=== PATIENT | male | born 1980 | race Caucasian/White ===

== ENCOUNTER 2025-02-09 14:40 | Outpatient (OUT) | payer BC, SELFPAY ==
--- OUTSIDE RECORDS SUMMARY | 2025-02-09 14:47 | XMS_ITS | Encounter Summary ---
Author Organization [facility] Address [id number] [place] [address] Care Team Providers Care Metalsmith Name Role Phone Patsy Anderson PRIMARY EDUCATION PROFESSOR-CDL SERVICE TECHNICIAN Primary Care Provider Reason for Visit * Reason Comments Med Refill Encounter Details Date Type Department Care Team (Late st Contact Info) Description 11/22/2023 Refill [facility] [address] [place] [address] Hali Avila, PA-C [address] [place] [address] Gastroesophageal reflux disease, unspecified whether esophagitis present Social History Tobacco Use Types Packs/Day Years Used Date Smoking Tobacco: Never Smokeless Tobacco: Current Chew Comments:QUIT 8 YEARS Alcohol Use Standard Drinks/Week Comments Not Currently 0 (1 standard drink = 0.6 oz pur e alcohol) Childcare Answer Date Recorded Childcare Unknown 10/09/2018 Employment Answer Date Recorded Employment Unknown 10/09/2018 Hunger Screening Answer Date Recorded Within the past 12 months we worried whether our food would run out before we got money to buy more. Never True 07/10/2023 Within the past 12 months th e food we bought just didn't last and we didn't have money to get more. Never True 07/10/2023 Purpose - Life Answer Date Recorded Purpose and direction in life Unknown Sex and Gender Information Value Date Recorded Sex Assigned at Male 01/10/2022 9:00 AM EDT Legal Sex Male 12:01 PM EDT Gender Identity Male 01/10/2022 9:00 AM EDT Sexual Orientation Straight 01/10/2022 9 :00 AM EDT documented as of this encounter Miscellaneous Notes * Telephone Encounter - Hali Avila PA-C - 11/22/2023 5:18 PM EDT Patient was discharged from our practice effective 09/06/2023. He will need to obtain any further refills from his PCP. * Telephone Encounter - Nina Castellon CMA - 11/22/2023 5:18 PM EDT Noted documented in this encounter Plan of Treatment Not on file documented as of this encounter Visit Diagnoses Diagnosis Gastroesophageal reflux disease, unspecified whether esophagitis present documented in this encounter Care Teams Metalsmith Relationship Specialty Start Date End Date Patsy Anderson, PRIMARY EDUCATION PROFESSOR-CDL SERVICE TECHNICIAN PCP - General Nurse Practitioner 02/07/22 documented as of this encounter
--- OUTSIDE RECORDS SUMMARY | 2025-02-09 14:47 | XMS_ITS | Encounter Summary ---
Author Organization [facility] Address [address] [place] [address] Care Team Providers Care Telecommunications Specialist Name Role Phone Patsy Anderson NP Unavailable [phone] Lon Baker MD Primary Care Provider [phone] Encounter Details Date Type Department Care Team (Late st Contact Info) Description 08/04/2024 Abstract [facility] [address] [place] [address] Patsy Anderson NP [address] [place] [address] Social History Tobacco Use Types Packs/Day Years Used Date Smoking Tobacco: Former Cigarettes Q uit: 2016 Smokeless Tobacco: Never Alcohol Use Standard Drinks/Week Comments Never 0 (1 standard drink = 0.6 oz pur e alcohol) caffine: soda 1 daily B1300 Health Literacy Answer Date Recor ded How often do you need to hav e someone help you when you read instructions, pamphlets, or other written material from your doctor or pharmacy? Never 04/27/2024 Social Connection and Isolation Panel Answer Date Recorded In a typical week, how many times do you talk on the phone with family, friends, or neighbors? More than three times a week 04/27/2024 How often do you get togethe r with friends or relatives? More than three times a week 04/27/2024 How often do you attend chur ch or baptist services? More than 4 times per year 04/27/2024 Do you belong to any clubs o r organizations such as bahai groups, unions, fraternal or athletic groups, or school groups? Yes 04/27/2024 How often do you attend meet ings of the clubs or organizations you belong to? More than 4 times per year 04/27/2024 Are you , , di vorced, , never , or living with a partner? Patient declined 04/27/2024 AUDIT-C Answer Date Recorded Q1: How often do you have a drink containing alcohol? Never 04/27/2024 Q2: How many drinks containi ng alcohol do you have on a typical day when you are drinking? Patient does not drink Q3: How often do you have si x or more drinks on one occasion? Never 04/27/2024 Overall Financial Resource Strain (CARDIA) Answe r Date Recorded How hard is it for you to pa y for the very basics like food, housing, medical care, and heating? Not hard at all 04/27/2024 PHQ-2 Answer Date Recorded Patient Health Questionnaire-2 Score 0 06/04/2023 [facility] - Occupational Stress Questionnaire Answer Date Recorded Do you feel stress - tense, restless, nervous, or anxious, or unable to sleep at night because your mind is troubled all the time - these days? Only a little 04/27/2024 Exercise Vital Sign Answer Date Recorde d On average, how many days pe r week do you engage in moderate to strenuous exercise (like a brisk walk)? 7 days 04/27/2024 On average, how many minutes do you engage in exercise at this level? 150+ min 04/27/2024 Hunger Vital Sign Answer Date Recorded Within the past 12 months, y ou worried that your food would run out before you got the money to buy more. Never true 04/27/20 24 Within the past 12 months, t he food you bought just didn't last and you didn't have money to get more. Never true 04/27/2024 PRAPARE - Transportation Answer Date Re corded In the past 12 months, has l ack of transportation kept you from medical appointments or from getting medications? No 03/31 In the past 12 months, has l ack of transportation kept you from meetings, work, or from getting things needed for daily living? No 04/27/2024 Housing Stability Vital Sign Answer Etienne e Recorded In the last 12 months, was t here a time when you were not able to pay the mortgage or rent on time? No 04/27/2024 In the past 12 months, how m any times have you moved where you were living? 0 04/27/2024 At any time in the past 12 m [facility], were you homeless or living in a usp (including now)? No 04/27/2024 Sex and Gender Information Value Date Recorded Sex Assigned at Male 08/01/2023 10:42 AM EDT Legal Sex Male 6:55 PM EDT Gender Identity Male 08/01/2023 10:42 AM EDT Sexual Orientation Straight 08/01/2023 10 :42 AM EDT documented as of this encounter Plan of Treatment Not on file documented as of this encounter Visit Diagnoses Not on filedocumented in this encounter Care Teams Telecommunications Specialist Relationship Specialty Start Date End Date Lon Baker MD PCP - General Family Medicine 04/30/23 Patsy Anderson NP Referring Physician Nurse Practitioner 11/13/22 documented as of this encounter
--- OUTSIDE RECORDS SUMMARY | 2025-02-09 14:47 | XMS_ITS | Clinical Summary ---
Author Organization [facility] Address [address] [place] [address] Care Team Providers Care Senior Environmental Engineer Name Role Phone Unavailable Primary Care Provider Unavailabl e Allergies No known active allergies Medications levothyroxine (SYNTHROID) 25 MCG tablet Take 2 tablets by mouth every morning (before breakfast) 5 Active ALPRAZolam (XANAX) 1 MG tablet Take 1 tablet by mouth every 8 hours as needed. 4 Active omeprazole (PRILOSEC) 40 MG delayed release capsule Take 1 capsule by mouth 2 times daily (before meals) 5 Active hydrocortisone 2.5 % creamIndication s:Dermatitis due to plants, including poison dawn, sumac, and oak Apply topically 2 times daily. 15 g 5 Active Active Problems No known active problems Social History Tobacco Use Types Packs/Day Years Used Date Smoking Tobacco: Never Smokeless Tobacco: Never Tobacco Cessation:Counseling Given: Not Answered Sex and Gender Information Value Date Recorded Sex Assigned at Not on file Legal Sex Male 6:32 PM EDT Gender Identity Not on file Sexual Orientation Not on file Last Filed Vital Signs Vital Sign Reading Time Taken Comments Blood Pressure 134/78 10/28/2024 6:52 PM EDT Pulse 73 10/28/2024 6:52 PM EDT Temperature 36.8 C (98.2 F) 10/28/2024 6:52 PM EDT Respiratory Rate 18 10/28/2024 6:52 PM EDT Oxygen Saturation 95% 10/28/2024 6:52 PM EDT Inhaled Oxygen Concentration - - Weight 123.8 kg (273 lb) 10/28/2024 6:52 PM EDT Height 185.4 cm (6' 1 ) 10/28/2024 6:52 PM EDT Body Mass Index 36.02 10/28/2024 6:52 PM EDT Plan of Treatment Health Maintenance Due Date Last Done Comments Depression Screen 1990 HIV screen 1993 Hepatitis C screen 1996 Hepatitis B vaccine (1 of 3 - 19+ 3-dose series) 1997 Diabetes screen 2013 Lipids 2018 HPV vaccine (3 - 3-dose SCDM series) 10/27/2019 08/02/2019, 04/27/2019 Colonoscopy 2023 FIT/FOBT: Average risk 2023 Sigmoidoscopy/CT colonography 2023 Flu vaccine (#1) 11/28/2024 03/02/2023, 05/11/2020, 01/30/2019 COVID-19 Vaccine (1 - 2023-2 5 season) 2024 Colorectal Cancer Screen 02/02/2027 Fecal-DNA (Cologuard): [place] ge risk 02/02/2027 02/03/2024 DTaP/Tdap/Td vaccine (2 - Td or Tdap) 12/03/2028 12/03/2018 Hepatitis A vaccine Aged Out 10/14/2018, 04/16/2018 No longer eligible based on patient's age to complete this topic Hib vaccine Aged Out No longer eligi ble based on patient's age to complete this topic Meningococcal (ACWY) vaccine Aged Out No longer eligible based on patient's age to complete this topic Meningococcal B vaccine Aged Out No l onger eligible based on patient's age to complete this topic Pneumococcal 0-49 years Vaccine Aged Out No longer eligible b ased on patient's age to complete this topic Polio vaccine Aged Out No longer elig ible based on patient's age to complete this topic Insurance [facility]
--- OUTSIDE RECORDS SUMMARY | 2025-02-09 14:47 | XMS_ITS | Encounter Summary ---
Author Organization [facility] Address [address] [place] [address] Care Team Providers Care Boiler/Chiller Operator Name Role Phone Patsy Anderson NP Unavailable [phone] Lon Baker MD Primary Care Provider [phone] Encounter Details Date Type Department Care Team (Late st Contact Info) Description 06/03/2023 Abstract [facility] [address] [place] [address] Patsy Anderson NP [address] [place] [address] Social History Tobacco Use Types Packs/Day Years Used Date Smoking Tobacco: Never PHQ-2 Answer Date Recorded Patient Health Questionnaire-2 Score 0 06/04/2023 Sex and Gender Information Value Date Recorded Sex Assigned at Male 08/01/2023 10:42 AM EDT Legal Sex Male 6:55 PM EDT Gender Identity Male 08/01/2023 10:42 AM EDT Sexual Orientation Straight 08/01/2023 10 :42 AM EDT documented as of this encounter Functional Status * Over the past 2 weeks, how often have you been bothered by any of the following problems? Question Answer Date of Assessment Author Little interest or pleasure in doing things Not at all 06/04/2023 7:30 PM Morena Mills MA Feeling down, depressed, or hopeless Not at all 06/04/2023 7:30 PM Morena Mills MA Patient Health Questionnaire-2 Score 0 06/04/2023 7:30 PM Roxana Mills MA documented as of this encounter Plan of Treatment Not on file documented as of this encounter Visit Diagnoses Not on filedocumented in this encounter Care Teams Boiler/Chiller Operator Relationship Specialty Start Date End Date Lon Baker MD PCP - General Family Medicine 04/30/23 Patsy Anderson NP Referring Physician Nurse Practitioner 11/13/22 documented as of this encounter
--- OUTSIDE RECORDS SUMMARY | 2025-02-09 14:47 | XMS_ITS | Clinical Summary ---
Author Organization [facility] Address [address] [place] [address] Care Team Providers Care Test Engine Evaluator Name Role Phone Patsy Anderson QUALITY CONTROL COORDINATOR Unavailable [phone] Lon Baker MD Primary Care Provider [phone] Allergies No known active allergies Medications Buprenorphine HCl-Naloxone HCl (Suboxone) 8-[address] 2 Film into mouth between cheek and gum Daily 4 Active ALPRAZolam (Xanax) 1 MG tabletIndication s:Anxiety Take 1 tablet (1 mg) by mouth every 8 (eight) hours if needed for anxiety 90 tablet 2 4 Active albuterol HFA 90 mcg/act inhalerIndicatio ns:Wheezing Inhale 2 puffs every 6 (six) hours if needed for wheezing 18 g 1 5 Active omeprazole (PriLOSEC) [address] capsuleIndicatio ns:Gastroesophag eal reflux disease, unspecified whether esophagitis present Take 1 capsule (40 mg) by mouth in the morning and 1 capsule (40 mg) in the evening. Take before meals. Do not crush or chew. 180 capsule 1 5 Active levothyroxine (Synthroid) 50 MCG tabletIndication s:Hypothyroidism (acquired) Take 1 tablet (50 mcg) by mouth in the morning. Take before meals. 30 tablet 1 5 Active SUMAtriptan (Imitrex) 100 MG tabletIndication s:Migraine without aura and without status migrainosus, not intractable Take 1 at onset of migraine [place], may repeat in 2 hours if needed. Max dose 2 pills in 24 hours. Do not take more than twice a week 9 tablet 1 Active Active Problems Problem Noted Date Diagnosed Date Shingles rash 11/13/2024 Encounter for adult wellness visit 09/17/2024 Assessment & Plan (09/17/2024 5:42 PM EDT): Reviewed Ht/Wt/BMI Recommend eye exam yearly Recommend dental exams twice a year Balance work/leisure activities Exercises is recommended most days of the week (appropriate as chronic conditions allow) Follow up yearly and prn Class 1 obesity due to exces s calories without serious comorbidity in adult 09/17/2024 Assessment & Plan (09/17/2024 5:43 PM EDT): Discussed with patient their BMI (actual, verses recommended). We have also discussed lifestyle modifications: attempts to perform physical activity as chronic conditions allow, also to monitor dietary intake: increasing protein/fruits/veggies and lowering carb intake (unless contraindicated). Limit sodas, juices, and sugary drinks. Substance use disorder 09/15/2024 Adult wellness visit 09/15/2024 Migraine without aura and wi thout status migrainosus, not intractable 03/07/2024 Assessment & Plan (09/17/2024 5:41 PM EDT): Uses ubrelvey for migraines, has been out of a few months Imitrex works, however causes groggy feeling Stressor with life/work/weather Colon cancer screening 10/25/2023 Assessment & Plan (10/25/2023 3:51 PM EDT): Will order cologuard Abnormal PFTs (pulmonary function tests) 024 Hypothyroidism (acquired) 07/03/2023 Assessment & Plan (09/17/2024 5:40 PM EDT): Increase levo dose to 50mcg Check labs in 8 weeks Assessment & Plan (01/28/2024 8:17 PM EDT): Needs labs checked Assessment & Plan (10/25/2023 3:50 PM EDT): Has lost 20 pounds since last visit, feeling good Check thyroid labs Mixed hyperlipidemia 07/03/2023 Assessment & Plan (09/17/2024 5:42 PM EDT): Stopped statin d/t extreme fatigue, resolved after stopping We discussed the trigs, which may be influenced by his thyroid Hold on meds at this time Assessment & Plan (10/25/2023 3:51 PM EDT): Stopped statin d/t extreme fatigue, resolved after stopping Has changed his diet, and he has lost close to 20 pounds Will recheck lipids Nausea 06/05/2023 Assessment & Plan (09/17/2024 5:40 PM EDT): Zofran ODT prn for nausea with migrain Assessment & Plan (10/25/2023 3:50 PM EDT): Would like prn zofran ODT Former tobacco use 06/04/2023 Gastroesophageal reflux disease 06/04/2023 Assessment & Plan (09/17/2024 5:39 PM EDT): Recommendations: freq small meals, nothing to eat or drink at least 2 hours prior to bed, limit caffeine, alcohol, as well as spicy foods Meds to limit or avoid if possible: NSAIDS Elevate HOB if possible Continue PPI Assessment & Plan (01/28/2024 8:14 PM EDT): Doing well w PPI, I have recommended he try weaning down use since he has lost weight and changed diet Will still write for BID for now Fu in 3 months Will also provide prn zofran Assessment & Plan (10/25/2023 3:50 PM EDT): Doing well w PPI Has lost weight, changed diet Fu in 3 months Wheezing 06/04/2023 Assessment & Plan (06/04/2023 8:17 PM EST): Order chest xray, PFT Abdominal cramping 06/04/2023 Assessment & Plan (06/04/2023 8:18 PM EST): Can trial bentyl PRN Anxiety 04/06/2022 Assessment & Plan (10/25/2023 3:52 PM EDT): OARRS reviewed Consider possible addition of rexulti?? Pt will research Fu in 3 months Assessment & Plan (06/04/2023 8:18 PM EST): OARRS reviewed Updated med agreement signed Fu in 3 months Chronic prostatitis 02/07/2022 Resolved Problems Problem Noted Date Diagnosed Date Resolved Date Opioid abuse, uncomplicated 01/28/2024 09/15/2024 Assessment & Plan (01/28/2024 8:16 PM EDT): Continue with suboxone and treatment provider BMI 33.0-33.9,adult 06/04/2023 10/25/19 24 Encounters Date Type Department Care Team Description 12/09/2024 Refill [facility] [address] [place] [phone] Patsy Anderson NP Migraine without aura and without status migrainosus, not intractable (Primary Dx) 12/08/2024 [facility]phone [facility] [address] [place] [phone] Patsy Anderson NP 11/14/2024 Refill [facility] [address] [place] [address] Patsy Anderson NP Hypothyroidism (acquired) 11/14/2024 Refill [facility] [address] [place] [address] Patsy Anderson NP Hypothyroidism (acquired) 11/13/2024 Refill [facility] [address] [place] [phone] Patsy Anderson NP Herpes zoster without complication (Primary Dx) 11/13/2024 Telephone [facility] [address] [place] [address] Patsy Anderson NP from Last 3 Months Immunizations Immunization Administration Dates Next Due HPV 9-Valent 08/02/2019,04/27/2019 Hep A, Adult 10/14/2018,04/16/2018 Hep B, adult 05/15/2018,04/16/2018 Influenza, injectable, quadr ivalent, preservative free 03/02/2023,05/11/2020,01/30/2019 Tdap 12/03/2018 Family History Medical History Relation Name Comments Mental illness Brother Mental illness Father Cancer Maternal Grandfather Mental illness Maternal Grandfather Cancer Maternal Grandmother Relation Name Status Comments Brother Father Maternal Grandfather Maternal Grandmother Social History Tobacco Use Types Packs/Day Years Used Date Smoking Tobacco: Former Cigarettes Q uit: 2016 Smokeless Tobacco: Never Tobacco Cessation:Counseling Given: Not Answered Alcohol Use Standard Drinks/Week Comments Never 0 [...] week 04/27/2024 How often do you attend [facility] or mormonism services? More than 4 times per year 04/27/2024 Do you belong to any clubs o r organizations such as buddhist groups, unions, fraternal or athletic groups, or [...] Recorded Patient Health Questionnaire-2 Score 0 06/04/2023 [facility] - Occupational Stress Questionnaire Answer Date Recorded [...] any time in the past 12 m [facility], were you homeless or living in a residential (including now)? No 04/27/2024 Sex and Gender Information Value Date Recorded Sex Assigned at Male 08/01/2023 10:42 AM EDT Legal Sex Male 6:55 PM EDT Gender Identity Male 08/01/2023 10:42 AM EDT Sexual Orientation Straight 08/01/2023 10 :42 AM EDT Last Filed Vital Signs Vital Sign Reading Time Taken Comments Blood Pressure 104/68 09/17/2024 4:50 PM EDT Pulse 88 09/17/2024 4:50 PM EDT Temperature 36.8 C (98.2 F) 09/17/2024 4:50 PM EDT Respiratory Rate 18 09/17/2024 4:50 PM EDT Oxygen Saturation 98% 09/17/2024 4:50 PM EDT Inhaled Oxygen Concentration - - Weight 125 kg (276 lb 3.2 oz) 09/17/2024 4:50 PM EDT Height 193 cm (6' 4 ) 10/25/2023 3:01 PM EDT Body Mass Index 33.62 10/25/2023 3:01 PM EDT Plan of Treatment Health Maintenance Due Date Last Done Comments CT Colonography 1978 Colonoscopy 1978 FIT 1978 FOBT 1978 Sigmoidoscopy 1978 Influenza Vaccine (#1) 2024 03/02/2023, 2020, 01/30/2019 Colorectal Cancer Screening 02/02/2027 FIT-DNA 02/02/2027 02/03/2024 Procedures Procedure Name Priority Date/Time Associated Diagnosis Comments LAB COLOGUARD COLON CANCER SCREEN Routine 02/03/2024 1:07 AM EDT Colon cancer screening from Last 3 Months or Most Recently Relevant to Health Maintenance Results * Cologuard?? colon cancer screening (02/03/2024 1:07 AM EDT) Pathologist [facility] NONINV COLON CA DNA+OCC BLD SCRN STL-IMP Negative Negative 02/07/2024 10:53 AM EDT [facility] (CLIA #:[id number]) Comment: NEGATIVE TEST RESULT. A negative Cologuard result indicates a low likelihood that a colorectal cancer (CRC) or advanced adenoma (adenomatous polyps with more advanced pre-malignant features) is present. The chance that a person with a negative Cologuard test has a colorectal cancer is less than 1 in 1500 (negative predictive value >99.9%) or has an advanced adenoma is less than 5.3% (negative predictive value 94.7%). These data are based on a prospective cross-sectional study of 10,000 individuals at average risk for colorectal cancer who were screened with both Cologuard and colonoscopy. (Dominick Valdez al, N Engl J Med 2014;370(14):5129-5563) The normal value (reference range) for this assay is negative. COLOGUARD RE-SCREENING RECOMMENDATION: Periodic colorectal cancer screening is an important part of preventive healthcare for asymptomatic individuals at average risk for colorectal cancer. Following a negative Cologuard result, the [place] Cancer Society and U.S. Multi-Society Task Force screening guidelines recommend a Cologuard re-screening interval of 3 years. References: [employer] Cancer Society Guideline for Colorectal Cancer Screening: https://www.cancer.org/cancer/bdcif-qdpayr-gihfer/kfoodesfc-aykrlwand-spwkgxa/ac s-rec ommendations.html.; Jarad DK, Agustin CR, Janine TorresK, Colorectal Cancer Screening: Recommendations for Physicians and Patients from the U.S. Multi-Society Task Force on Colorectal Cancer Screening , Am J Gastroenterology 2017; 112:1480-5893. TEST DESCRIPTION: Composite algorithmic analysis of stool DNA-biomarkers with hemoglobin immunoassay. Quantitative values of individual biomarkers are not reportable and are not associated with individual biomarker result reference ranges. Cologuard is intended for colorectal cancer screening of adults of either sex, 45 years or older, who are at average-risk for colorectal cancer (CRC). Cologuard has been approved for use by the U.S. FDA. The performance of Cologuard was established in a cross sectional study of average-risk adults aged 50-84. Cologuard performance in patients ages 45 to 49 years was estimated by sub-group analysis of near-age groups. Colonoscopies performed for a positive result may find as the most clinically significant lesion: colorectal cancer [4.0%], advanced adenoma (including sessile serrated polyps greater than or equal to 1cm diameter) [20%] or non- advanced adenoma [31%]; or no colorectal neoplasia [45%]. These estimates are derived from a prospective cross-sectional screening study of 10,000 individuals at average risk for colorectal cancer who were screened with both Cologuard and colonoscopy. (Dominick Valdez al, N Engl J Med 2014;370(14):3135-0777.) Cologuard may produce a false negative or false positive result (no colorectal cancer or precancerous polyp present at colonoscopy follow up). A negative Cologuard test result does not guarantee the absence of CRC or advanced adenoma (pre-cancer). The current Cologuard screening interval is every 3 years. (Japanese Cancer Society and U.S. Multi-Society Task Force). Cologuard performance data in a 10,000 patient pivotal study using colonoscopy as the reference method can be accessed at the following location: www.[employer].Apixio/results. Additional description of the Cologuard test process, warnings and precautions can be found at www.cologuard.com. Stool specimen (specimen) Rectal contents / Unknown 02/03/2024 1:07 AM EDT 02/05/2024 10:45 AM EDT Patsy Anderson NP LAB MOLECULAR DIAGNOSTICS ORDER DARVIN Final Result [facility] (CLIA #:[id number]) [address] [place] [address], from Last 3 Months or Most Recently Relevant to Health Maintenance Insurance [facility] Care Teams Test Engine Evaluator Relationship Specialty Start Date End Date Lon Baker MD PCP - General Family Medicine 04/30/23 Patsy Anderson NP Referring Physician Nurse Practitioner 11/13/22
--- OUTSIDE RECORDS SUMMARY | 2025-02-09 14:47 | XMS_ITS | Encounter Summary ---
Author Organization [employer] Address [id number] [place] [address] Care Team Providers Care Casing Crew Name Role Phone JesusPatsy alcazar Brian SLOT EDITOR-CHEMISTRY TUTOR Primary Care Provider Reason for Visit * Reason Comments Med Refill Encounter Details Date Type Department Care Team (Late st Contact Info) Description 07/16/2022 Refill [facility] [address] [place] [phone] Hali Avila, PA-C [address] [facility] [address] [place] [address] Gastroesophageal reflux disease, unspecified whether esophagitis present [...] got money to buy more. Never True 07/11/2022 Within the past 12 months th e food we bought just didn't last and we didn't have money to get more. Never True 07/11/2022 Purpose - Life Answer Date Recorded Purpose and direction in life Unknown Sex and Gender Information Value Date Recorded Sex Assigned at Male 01/10/2022 9:00 AM EDT Legal Sex Male 12:01 PM EDT Gender Identity Male 01/10/2022 9:00 AM EDT Sexual Orientation Straight 01/10/2022 9: 00 AM EDT COVID-19 Exposure Response Date Recorded In the last month, have you been in contact with someone who was confirmed or suspected to have Coronavirus / COVID-19? No / Unsure 07/11/2022 1:11 PM EDT documented as of this encounter Plan of Treatment Not on file documented as of this encounter Visit Diagnoses Diagnosis Gastroesophageal reflux disease, unspecified whether esophagitis present documented in this encounter Care Teams Casing Crew Relationship Specialty Start Date End Date Patsy Anderson, CLEMENTINE-CHEMISTRY TUTOR PCP - General Nurse Practitioner 02/07/22 documented as of this encounter
--- OUTSIDE RECORDS SUMMARY | 2025-02-09 14:47 | XMS_ITS | Encounter Summary ---
Author Organization [employer] Address [id number] [place] [address] Care Team Providers Care Stitch Cleaner Name Role Phone JesusPatsy alcazar Brian BUFFET ATTENDANT-HYDRO SPRAYER OPERATOR Primary Care Provider Reason for Visit * Reason Onset Date Comments Med Refill 10/16/2022 Encounter Details Date Type Department Care Team (Late st Contact Info) Description 10/16/2022 Refill [facility] [address] [facility] [place] [phone] Hali Avila PA-C [address] [facility] [address] [place] [address] Gastroesophageal reflux disease, unspecified whether esophagitis present [...] Orientation Straight 01/10/2022 9: 00 AM EDT documented as of this encounter Plan of Treatment Not on file documented as of this encounter Visit Diagnoses Diagnosis Gastroesophageal reflux disease, unspecified whether esophagitis present documented in this encounter Care Teams Stitch Cleaner Relationship Specialty Start Date End Date Patsy Anderson APRN-HYDRO SPRAYER OPERATOR PCP - General Nurse Practitioner 02/07/22 documented as of this encounter
--- OUTSIDE RECORDS SUMMARY | 2025-02-09 14:47 | XMS_ITS | Encounter Summary ---
Author Organization [facility] [employer] Address [id number] [place] [address] Care Team Providers Care Laundry Assistant Name Role Phone JesusPatsy alcazar Brian HEALTH INFORMATION CODER-SHAFT REPAIRER Primary Care Provider Encounter Details Date Type Department Care Team (Late st Contact Info) Description 03/21/2022 [facility] [address] [facility] [address] [place] [phone] Marianela Sanderson CNA Social History Tobacco Use Types Packs/Day Years Used Date Smoking Tobacco: Never Smokeless Tobacco: Current Chew Comments:QUIT 8 YEARS Alcohol Use Standard Drinks/Week Comments Not Currently 0 (1 standard drink = 0.6 oz pur e alcohol) Childcare Answer Date Recorded Childcare Unknown 10/09/2018 Employment Answer Date Recorded Employment Unknown 10/09/2018 Purpose - Life Answer Date Recorded Purpose and direction in life Unknown Sex and Gender Information Value Date Recorded Sex Assigned at Male 01/10/2022 9:00 AM EDT Legal Sex Male 12:01 PM EDT Gender Identity Male 01/10/2022 9:00 AM EDT Sexual Orientation Straight 01/10/2022 9: 00 AM EDT documented as of this encounter Miscellaneous Notes * Telephone Encounter - Marianela Sanderson CNA - 03/21/2022 11:45 AM EST Patient called to cancel 03/[address] Pizarro at [facility] due to a complicated work schedule. [facility] endo notified- Thuy. Pt wants AUGUST 2022 documented in this encounter Plan of Treatment Not on file documented as of this encounter Visit Diagnoses Not on filedocumented in this encounter Care Teams Laundry Assistant Relationship Specialty Start Date End Date Patsy Anderson, CLEMENTINE-SHAFT REPAIRER PCP - General Nurse Practitioner 02/07/22 documented as of this encounter
--- OUTSIDE RECORDS SUMMARY | 2025-02-09 14:47 | XMS_ITS | Encounter Summary ---
Author Organization [facility] Address [address] [place] [address] Care Team Providers Care Tool Lapper Hand Name Role Phone Patsy Anderson NP Unavailable [phone] Lon Baker MD Primary Care Provider [phone] Encounter Details Date Type Department Care Team (Late st Contact Info) Description 09/10/2024 Results Follow-Up [facility] [address] [place] [address] Carlyn Lin MA TSH, AST, ALT, Additional followed-up results: 2 Social History Tobacco Use Types Packs/Day Years [...] week 04/27/2024 How often do you attend [facility] or worship services? More than 4 times per year 04/27/2024 Do you belong to any clubs o r organizations such as amish groups, unions, fraternal or athletic groups, or [...] Recorded Patient Health Questionnaire-2 Score 0 06/04/2023 [facility] - Occupational Stress Questionnaire Answer Date Recorded [...] any time in the past 12 m [facility], were you homeless or living in a chcf (including now)? No 04/27/2024 Sex and Gender [...] on filedocumented in this encounter Care Teams Tool Lapper Hand Relationship Specialty Start Date End Date Lon Baker MD PCP - General Family Medicine 04/30/23 Patsy Anderson NP Referring Physician Nurse Practitioner 11/13/22 documented as of this encounter
--- OUTSIDE RECORDS SUMMARY | 2025-02-09 14:47 | XMS_ITS | Clinical Summary ---
Author Organization [facility] Address [address] [place] [address] Care Team Providers Care Microsoft Office Instructor Name Role Phone Unavailable Primary Care Provider Unavailabl e Allergies No known active allergies Medications ALPRAZolam (Xanax) 1 mg tablet 2 Active ondansetron ODT (Zofran-ODT) 4 mg disintegrating tablet Active glecaprevir-pibrent asvir (Mavyret) 100-40 mg tablet Act cl famotidine (Pepcid) 20 mg tablet Take 20 mg by mouth if needed in the morning and at bedtime. 2 Active oxyCODONE (Roxicodone) 10 mg immediate release tablet Take 1 tablet every 4 hours by oral route as needed for 30 days. Active buprenorphine-nalox one (Suboxone) 8-2 mg SL film 2 Active omeprazole (PriLOSEC) [address] capsule Take 40 mg by mouth. 2 Active SUMAtriptan (Imitrex) 100 mg tablet 2 Active ProAir HFA 90 mcg/actuation inhaler 2 Active azithromycin (Zithromax) 250 mg tablet 2 Active amoxicillin-pot clavulanate (Augmentin) 875-125 mg tablet 2 Active Active Problems Problem Noted Date Diagnosed Date Anxiety 04/06/2022 Chronic prostatitis 02/07/2022 Chronic GERD 01/11/2022 Immunizations Immunization Administration Dates Next Due Hep A, Adult 10/14/2018,04/16/2018 Hep B, adult 05/15/2018,04/16/2018 Social History Tobacco Use Types Packs/Day Years Used Date Smoking Tobacco: Never Assessed [place] Safety & Environment Answer Date Rec orded Fear of Current or Ex-Partner Not on file Emotionally Abused Not on file 06/21/2023 Physically Abused Not on file 06/21/2023 Sexually Abused Not on file 06/21/2023 Physically or Sexually Abused Not on file Sex and Gender Information Value Date Recorded Sex Assigned at Not on file Legal Sex Male 10:36 PM EDT Gender Identity Not on file Sexual Orientation Not on file Last Filed Vital Signs Vital Sign Reading Time Taken Comments Blood Pressure 103/54 05/15/2018 4:16 PM EST Pulse 83 05/15/2018 4:16 PM EST Temperature - - Respiratory Rate - - Oxygen Saturation - - Inhaled Oxygen Concentration - - Weight 111 kg (245 lb) 05/15/2018 4:12 PM EST Height 193 cm (6' 4 ) 05/15/2018 4:12 PM EST Body Mass Index 29.82 05/15/2018 4:12 PM EST Plan of Treatment Health Maintenance Due Date Last Done Comments CT Colonography 1978 Colonoscopy 1978 Colorectal Cancer Screening 1978 FIT-DNA 1978 FIT 1978 FOBT 1978 Sigmoidoscopy 1978 Depression Screening 1990 Hepatitis B Vaccines (3 of 3 - 19+ 3-dose series) 10/15/2018 05/15/2018, 04/16/2018 HPV Vaccines (3 - 3-dose SCD M series) 10/27/2019 08/02/2019, 04/27/2019 Influenza Vaccine (#1) 2024 1, 01/30/2019 Zoster Vaccines (1 of 2) 2028 Adult Tetanus 12/03/2028 12/03/2018 HIB Vaccines Aged Out No longer eligi ble based on patient's age to complete this topic IPV Vaccines Aged Out No longer eligi ble based on patient's age to complete this topic Meningococcal B Vaccine Aged Out No l onger eligible based on patient's age to complete this topic Meningococcal Vaccine Aged Out No carlos agapito eligible based on patient's age to complete this topic Pneumococcal Vaccine: Pediatrics (0 to 5 Years) and At-Risk Patients (6 to 64 Years) Aged Out No longer eligible b ased on patient's age to complete this topic Rotavirus Vaccines Aged Out No longer eligible based on patient's age to complete this topic Insurance [employer] [place] [facility] [place]
--- OUTSIDE RECORDS SUMMARY | 2025-02-09 14:47 | XMS_ITS | Patient Health Record ---
Author Organization [facility] [place] Address [address] [place] [address] Care Team Providers Care Rod Mill Tender Name Role Phone JOSE WORTHINGTON MD Primary Care Provider [phone] Reason For Referral No Information Medications Medication SIG (Take, Route, Fr equency, Duration) Notes Start Date End Date Status Roxicodone 15 mg tablet Ac tive Lortab 500 mg-10 mg tablet Active Xanax 1 mg tablet Active Wellbutrin tablet Active Ambien 10 mg tablet Active Plan Of Treatment No Information Insurance Providers Payer Name Payer Address Payer Phone Subscriber Number Group Number Insured Name Patient Relationship to Insured Coverage Start Date Coverage End Date SELF PAY ON PATIENT [employer] Kevin Ramirez Self - patient is the insured 3
--- OUTSIDE RECORDS SUMMARY | 2025-02-09 14:47 | XMS_ITS | Patient Health Record ---
Author Organization [employer] [facility] Address [address] [place] [address] Care Team Providers Care Seat Joiner Name Role Phone CALRINELina Dieter Primary Care Provider [phone] Reason For Referral No Information Medications Medication SIG (Take, Route, Frequency, Duration) Notes Start Date End Date Status hydrOXYzine HCl 25 MG Tablet 1 tablet as needed Orally every 8 hrs as needed for anxiety; Duration: 30 day(s) 07/28/2015 Active Omeprazole 40 MG Capsule Delayed Release 1 capsule Orally Once a day; Duration: 30 day(s) 07/05/2015 Active SUMAtriptan Succinate 50 MG Tablet 1 tablet as needed one time Orally Once a day; Duration: 30 day(s) 07/28/2015 Active busPIRone HCl 5 MG Tablet 1 tablet Orall y Three times a day; Duration: 30 days 09/20/2015 Active Verapamil HCl 120 MG Tablet 1 tablet Ora lly Three times a day; Duration: 30 day(s) 09/20/2015 Active traZODone HCl 50 MG Tablet 1 tablet at b edtime as needed Orally Once a day; Duration: 30 day(s) 09/20/2015 Active Social History Section Notes: 07/05/15: Quit smoking 8 days ago but chews tobacco. Denies ETOH and IDU. Committed a felony in 2011, and was just released from senior living May 2015. 07/05/15: Quit smoking 8 days ago but chews tobacco. Denies ETOH and IDU. Committed a felony in 2011, and was just released from senior living May 2015. 07/05/15: Quit smoking 8 days ago but chews tobacco. Denies ETOH and IDU. Committed a felony in 2011, and was just released from senior living May 2015. Plan Of Treatment No Information Insurance Providers Payer Name Payer Address Payer Phone Subscriber Number Group Number Insured Name Patient Relationship to Insured Coverage Start Date Coverage End Date [employer] [address] [place] [address] [id number] DIETER LUEVANO Self - patient is the insured Medical (General) History Medical History History ICD Code Anxiety/Depression Hepatitis C Surgical History Surgery Date(Month/Year) left arm fracture repair 1982
--- OUTSIDE RECORDS SUMMARY | 2025-02-09 14:47 | XMS_ITS | Encounter Summary ---
Author Organization [employer] [facility] Address [id number] [place] [address] Care Team Providers Care Data Processing Systems Consultant Name Role Phone JesusPatsy alcazar Brian VOTING MACHINE MECHANIC-HYDRO PLANT SITE MANAGER Primary Care Provider Encounter Details Date Type Department Care Team (Late st Contact Info) Description 02/21/2022 Orders Only [facility] [address] [place] [address] Hali Avila, PA-C [address] [facility] [address] [place] [address] Social History Tobacco Use Types Packs/Day Years Used Date Smoking Tobacco: Never Smokeless Tobacco: Current Chew Comments:Attempting to quit. Alcohol Use Standard Drinks/Week Comments Not Currently [...] have Coronavirus / COVID-19? No / Unsure 02/16/2022 11:17 AM EDT documented as of this encounter Progress Notes * Hali Avila PA-C - 02/21/2022 3:08 PM EDT 02/17/2020 FibroScan -- F2, S3. 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 documented in this encounter Plan of Treatment Not on file documented as of this encounter Procedures Procedure Name Priority Date/Time Associated Diagnosis Comments FIBROSCAN Routine 02/16/2022 documented in this encounter Results * Fibroscan (02/16/2022) us Hali Avila PA-C GI PROCEDURE ORDERABLE S Final Result MANUALLY TRANSCRIBED RESULTS documented in this encounter Visit Diagnoses Not on filedocumented in this encounter Care Teams Data Processing Systems Consultant Relationship Specialty Start Date End Date Patsy Anderson, VOTING MACHINE MECHANIC-HYDRO PLANT SITE MANAGER PCP - General Nurse Practitioner 02/07/22 documented as of this encounter
--- OUTSIDE RECORDS SUMMARY | 2025-02-09 14:47 | XMS_ITS | Encounter Summary ---
Author Organization [facility] Address [id number] [place] [address] Care Team Providers Care Director Of Adult Epilepsy Name Role Phone JesusPatsy alcazar Brian SHELL REPRINT OPERATOR-SPECIAL EFFECTS TECHNICIAN Primary Care Provider Encounter Details Date Type Department Care Team (Late st Contact Info) Description 06/28/2023 Telephone [facility] [address] [place] [address] [address] [place] [address] [facility] [address] [place] [address], [address] [place] [address] Social History Tobacco Use Types [...] got money to buy more. Never True 06/28/2023 Within the past 12 months th e food we bought just didn't last and we didn't have money to get more. Never True 06/28/2023 Purpose - Life Answer Date Recorded Purpose and direction in life Unknown Sex and Gender Information Value Date Recorded Sex Assigned at Male 01/10/2022 9:00 AM EDT Legal Sex Male 12:01 PM EDT Gender Identity Male 01/10/2022 9:00 AM EDT Sexual Orientation Straight 01/10/2022 9: 00 AM EDT documented as of this encounter Miscellaneous Notes * Telephone Encounter - Anne Villalobos - 06/28/2023 1:44 PM EST Jaymie from [facility] called and wanted the fibroscan order faxed to her at [phone]. It sounded likethey were wanting to schedule it. She states they perform it there. Sent message to Hali and Fibroscan department to sort out. Jaymie [phone]/[facility]///cls * Telephone Encounter - Hali Avila PA-C - 06/28/2023 1:44 PM EST I am unsure who Jaymie is. I would prefer the patient due the FibroScan with our office if possible. If it works better for him to complete the FibroScan at [facility], please have them send us the results. documented in this encounter Plan of Treatment Not on file documented as of this encounter Visit Diagnoses Not on filedocumented in this encounter Care Teams Director Of Adult Epilepsy Relationship Specialty Start Date End Date Patsy Anderson, SHELL REPRINT OPERATOR-SPECIAL EFFECTS TECHNICIAN PCP - General Nurse Practitioner 02/07/22 documented as of this encounter
--- OUTSIDE RECORDS SUMMARY | 2025-02-09 14:47 | XMS_ITS | Encounter Summary ---
Author Organization [facility] Address [address] [facility] [place] [address] Care Team Providers Care Survey Questionnaire Designer Name Role Phone Patsy Anderson NP Unavailable [phone] Lon Baker MD Primary Care Provider [phone] Encounter Details Date Type Department Care Team (Late st Contact Info) Description 06/28/2023 External Result Encounter [facility] [address] [place] [address] Patsy Anderson NP [address] [place] [address] Social History Tobacco Use Types Packs/Day Years Used Date Smoking Tobacco: Former Cigarettes Q uit: 2016 Smokeless Tobacco: Never Alcohol Use Standard Drinks/Week Comments Never 0 (1 standard drink = 0.6 oz pur e alcohol) caffine: soda 1 daily PHQ-2 Answer Date Recorded Patient Health Questionnaire-2 [...] Procedure Name Priority Date/Time Associated Diagnosis Comments XR CHEST 2 VIEWS 06/28/2023 11:1 1 AM EST URINALYSIS, MANUAL ONLY Routine 06/28/2023 11:01 AM EST TSH ([facility]) Routine 06/28/2023 10:47 AM EST LIPID PANEL Routine 06/28/2023 10:47 AM EST COMPREHENSIVE METABOLIC PANEL Routine 06/28/2023 10:47 AM EST CBC WITH AUTO DIFFERENTIAL Routine 06/28/2023 10:46 AM EST documented in this encounter Results * XR chest 2 views (06/28/2023 11:11 AM EST) Anatomical Region Laterality Modality Chest Radiographic Brenda ging 06/28/2023 11:1 1 AM EST Narrative 06/28/2023 11:10 AM EST THIS EXAM WAS PERFORMED AT [facility] History: Wheezing Procedure: 2 view PA and Lateral chest radiograph. Comparison: 07/11/2022 Findings: The heart and lungs show no acute findings, and the mediastinum and christina are grossly negative . No pneumothorax. Impression: No acute pulmonary process. Finalized by Alex Chanel MD on 06/28/2023 11:10 AM Procedure Note Radiology, Radiologist, MD - 06/28/2023 THIS EXAM WAS PERFORMED AT [facility] History: Wheezing Procedure: 2 view PA and Lateral chest radiograph. Comparison: 07/11/2022 Findings: The heart and lungs show no acute findings, and the mediastinumand christina are grossly negative . No pneumothorax. Impression: No acute pulmonary process. Finalized by Alex Chanel MD on 06/28/2023 11:10 AM us Patsy Anderson FIBERGLASS ROLLER IMG XR PROCEDURES Final Result * (ABNORMAL) Urinalysis, manual only (06/28/2023 11:01 AM EST) COLOR YELLOW YELLOW [facility] TURBIDITY CLEAR CLEAR [facility] SPECIFIC GRAVITY 1.021 1.003 - 1.035 [facility] NITRITE Negative Negative [facility] PH, URINE 6.0 5.0 - 8.5 [facility] LEUKOCYTE ESTERASE Negative Negative [facility] PROTEIN Trace(A) Negative mg/dL [facility] GLUCOSE (URINE) Negative Negative mg/dL [facility] KETONES (URINE) Negative Negative mg/dL [facility] UROBILINOGEN <1.1 <1.1 eu/dL [facility] BILIRUBIN (URINE) Negative Negative [facility] BLOOD/HGB Negative Negative [facility] MUCOUS PRESENT(A) NONE [facility] RED BLOOD CELLS 1 0 - 5 /hpf [facility] SQUAMOUS EPITHELIUM <1 0 - 5 /hpf [facility] WHITE BLOOD CELLS <1 0 - 5 /hpf [facility] 06/28/2023 11:0 1 AM EST 06/28/2023 11:02 AM EST us Patsy Anderson FIBERGLASS ROLLER LAB URINE ORDERABLES Final Resu lt [facility] * (ABNORMAL) TSH ([facility]) (06/28/2023 10:47 AM EST) TSH 8.13(H) 0.49 - 4.67 uIU/mL [facility] Comment:PERFORMED AT [facility] [address],[place] [address] 06/28/2023 10:4 7 AM EST 06/28/2023 10:48 AM EST us Patsy Anderson FIBERGLASS ROLLER LAB BLOOD ORDERABLES Final Resu lt [facility] * (ABNORMAL) Lipid panel (06/28/2023 10:47 AM EST) CHOLESTEROL 190 150 - 200 mg/dL [facility] TRIGLYCERIDE 964(H) 27 - 150 mg/dL [facility] HDL CHOLESTEROL 30(L) >39 mg/dL [facility] Comment: HDL <40 mg/dL - High Risk HDL > or = 40mg/dL- Desirable HDL >60 mg/dL - Negative Risk VERY LOW LIPOPROTEIN 193(H) 0 - 30 mg/dL [facility] LDL (CALC) RESULT BELOW DETECTABLE RANGE <130 mg/dL [facility] CHOLESTEROL:HDL 6.3(H) 1.0 - 5.0 [facility] Comment:PERFORMED AT [facility] [address],[place] [address] 06/28/2023 10:4 7 AM EST 06/28/2023 10:48 AM EST us Patsy Anderson NP LAB BLOOD ORDERABLES Final Resu lt [facility] * (ABNORMAL) Comprehensive metabolic panel (06/28/2023 10:47 AM EST) Pathologist [facility] Sodium 139 134 - 146 mmol/L [facility] Potassium, Bld 4.1 3.5 - 5.0 mmol/L [facility] Chloride 101 98 - 109 mmol/L [facility] Carbon Dioxide 29 22 - 32 mmol/L [facility] Anion Gap 9 5 - 15 mmol/L [facility] BUN 13 5 - 23 mg/dL [facility] Creatinine 1.13 0.60 - 1.30 mg/dL [facility] Comment:METHOD TRACEABLE TO IDMS STANDARD Glucose 96 65 - 99 mg/dL [facility] Calcium 9.3 8.5 - 10.5 mg/dL [facility] TOTAL PROTEIN 6.8 6.0 - 8.0 g/dL [facility] ALBUMIN 4.5 3.2 - 5.3 g/dL [facility] ALKALINE PHOSPHATASE 77 39 - 130 U/L [facility] AST 35 0 - 41 U/L [facility] ALT 66(H) 0 - 40 U/L [facility] TOTAL BILIRUBIN 0.3 0.3 - 1.2 mg/dL [facility] EGFR 82 >59 ml/min/1.7 3sq.m [facility] Comment: Reported eGFR is based on the CKD-EPI 2020 equation that does not use a race coefficient. PERFORMED AT [place] [address],[place] [address] 06/28/2023 10:4 7 AM EST 06/28/2023 10:48 AM EST us Patsy Anderson FIBERGLASS ROLLER LAB BLOOD ORDERABLES Final Resu lt [facility] * (ABNORMAL) CBC auto differential (06/28/2023 10:46 AM EST) WHITE BLOOD CELL COUNT, WBC 8.0 4.0 - 11.0 X10E9/L [facility] RED BLOOD CELL COUNT, RBC 5.41 4.10 - 5.70 X10E12/L [facility] HEMOGLOBIN 15.2 13.0 - 17.0 g/dL [facility] HEMATOCRIT 43.7 39 - 49 % [facility] MEAN CELL VOLUME, MCV 81 80 - 100 fL [facility] MEAN CELL HEMOGLOBIN, MCH 28.2 27 - 34 pg [facility] MEAN CELL HEMOGLOGIN CONCENTRATION, MCHC 34.9 32 - 36 g/dL [facility] RED CELL DISTRIBUTION WIDTH, RDW 13.2 11.5 - 15.0 % [facility] PLATELET COUNT 138(L) 150 - 450 X10E9/L [facility] MEAN PLATELET VOLUME, MPV 9.6 7 - 12 fL [facility] SEG NEUTROPHIL 65.0 % [facility] LYMPHOCYTE 25.0 % [facility] MONOCYTE 8.0 % [facility] EOSINOPHIL 2.0 % [facility] ABSOLUTE NEUTROPHILS 5.2 1.5 - 6.6 X10E9/L [facility] ABSOLUTE LYMPHOCYTE 2.0 1.0 - 3.5 X10E9/L [facility] ABSOLUTE MONOCYTE 0.6 0 - 0.9 X10E9/L [facility] ABSOLUTE EOSINOPHIL 0.2 0.0 - 0.4 X10E9/L [facility] RBC MORPHOLOGY NORMAL [facility] Comment: PERFORMED AT [place] [address],[place] [address] The copy-to physician of this order is MANAS Mckinney ; , ; 06/28/2023 10:4 6 AM EST 06/28/2023 10:48 AM EST us Patsy Anderson NP LAB BLOOD ORDERABLES Final Resu lt [facility] documented in this encounter Visit Diagnoses Not on filedocumented in this encounter Care Teams Survey Questionnaire Designer Relationship Specialty Start Date End Date Lon Baker MD PCP - General Family Medicine 04/30/23 Patsy Anderson NP Referring Physician Nurse Practitioner 11/13/22 documented as of this encounter
--- OUTSIDE RECORDS SUMMARY | 2025-02-09 14:47 | XMS_ITS | Encounter Summary ---
Author Organization [facility] Address [id number] [place] [address] Care Team Providers Care Crop Specialist Name Role Phone JesusPatsy alcazar Brian SUPERVISOR SPECIAL SERVICES-MANAGEMENT INFORMATION SYSTEMS DIRECTOR Primary Care Provider Encounter Details Date Type Department Care Team (Late st Contact Info) Description 02/02/2022 [facility]phone [facility] [address] [facility] [facility] [address] [place] [address] Magdalena Cárdenas, HEATHER Social History Tobacco Use Types Packs/Day Years Used Date Smoking Tobacco: Never Smokeless Tobacco: Current Alcohol Use Standard Drinks/Week Comments Not Currently [...] have Coronavirus / COVID-19? No / Unsure 02/02/2022 8:54 AM EDT documented as of this encounter Miscellaneous Notes * Telephone Encounter - Magdalena Cárdenas RN - 02/02/2022 4:13 PM EDT From [facility] ?? Patient is already scheduled EGD with Dr. Pizarro, will assess for esophageal varices at this time. ??He is willing to move forward with FibroScan as well. ??Informed patient this will help us to confirm if cirrhosis is present or not. ?? Ladies, please switch patient to have EGD at [facility] or [facility] for concern that esophageal varices may be present. ?? * Telephone Encounter - Syl Shepard - 02/02/2022 4:13 PM EDT Called patient and scheduled EGD for 02/13 at [facility] with . Patient is very concerned and instructions sent to [facility]. documented in this encounter Plan of Treatment Not on file documented as of this encounter Visit Diagnoses Not on filedocumented in this encounter Care Teams Crop Specialist Relationship Specialty Start Date End Date Patsy Anderson, SUPERVISOR SPECIAL SERVICES-MANAGEMENT INFORMATION SYSTEMS DIRECTOR PCP - General Nurse Practitioner 02/07/22 documented as of this encounter
--- OUTSIDE RECORDS SUMMARY | 2025-02-09 14:47 | XMS_ITS | Encounter Summary ---
Author Organization [employer] [facility] Address [id number] [place] [address] Care Team Providers Care Driver Education Instructor Name Role Phone JesusPatsy alcazar CHIEF MEDICAL OFFICER-TRACTOR OPERATOR Primary Care Provider Encounter Details Date Type Department Care Team (Late st Contact Info) Description 11/22/2021 Telephone [facility] [address] [place] [address] [address] [place] [address] Consult[facility], [facility] [address] [place] [address], [address] [place] [address] Social History Tobacco Use Types [...] encounter Miscellaneous Notes * Telephone Encounter - Robyn Castellanos - 11/22/2021 10:30 AM EDT Received a referral for Kevin Martino from Patsy Anderson CNP for chronic gerd. I called and spoke with patient but he was on the road. The patient stated he will call us back to schedule appointment. documented in this encounter Plan of Treatment Not on file documented as of this encounter Visit Diagnoses Not on filedocumented in this encounter Care Teams Driver Education Instructor Relationship Specialty Start Date End Date Patsy Anderson APRN-TRACTOR OPERATOR PCP - General Nurse Practitioner 02/07/22 documented as of this encounter
--- OUTSIDE RECORDS SUMMARY | 2025-02-09 14:47 | XMS_ITS | Clinical Summary ---
Author Organization [employer] [facility] Address [id number] [place] [address] Care Team Providers Care Lean Manager Name Role Phone Jesusdeanrenan Patsy Torres APRN-CREDIT PORTFOLIO ADVISOR Primary Care Provider Allergies No known active allergies Medications buprenorphine-na loxone (SUBOXONE) 8-2 mg film 2 Active ALPRAZolam (XANAX) 1 mg tablet 2 Active albuterol (PROVENTIL HFA;VENTOLIN HFA) 90 mcg/actuation inhalerIndicatio ns:Acute bronchitis with wheezing Inhale 2 puffs every 4 (four) hours as needed for wheezing or shortness of breath. 18 g 3 Active famotidine (PEPCID) 20 mg tabletIndication s:Gastroesophage al reflux disease, unspecified whether esophagitis present Take 1 tablet (20 mg total) by mouth 2 (two) times a day as needed for heartburn. 60 tablet 5 3 Active omeprazole (PriLOSEC) 40 mg capsuleIndicatio ns:Gastroesophag eal reflux disease, unspecified whether esophagitis present Take 1 capsule (40 mg total) by mouth in the morning and 1 capsule (40 mg total) in the evening. Take before meals. 180 capsule 4 Active methylPREDNISolo ne (MEDROL, SAILAJA,) 4 mg tablet follow package directions 21 tablet 5 Active Active Problems Problem Noted Date Diagnosed Date Chronic prostatitis 02/07/2022 Chronic GERD 01/11/2022 Social History Tobacco Use Types Packs/Day Years Used Date Smoking Tobacco: Never Smokeless Tobacco: Current Chew Tobacco Cessation:Ready to Q uit: Not Asked; Counseling Given: Not Answered Comments:QUIT 8 YEARS Alcohol Use Standard Drinks/Week [...] Orientation Straight 01/10/2022 9: 00 AM EDT Last Filed Vital Signs Vital Sign Reading Time Taken Comments Blood Pressure 136/66 07/31/2024 2:46 PM EDT Pulse 66 07/31/2024 2:46 PM EDT Temperature 36.6 C (97.9 F) 07/31/2024 2:46 PM EDT Respiratory Rate 18 07/31/2024 2:46 PM EDT Oxygen Saturation 100% 07/31/2024 2:46 PM EDT Inhaled Oxygen Concentration - - Weight 123.8 kg (273 lb) 07/31/2024 2:46 PM EDT Height 193 cm (6' 4 ) 07/10/2023 11:23 AM EDT Body Mass Index 33.23 07/10/2023 11:23 AM EDT Plan of Treatment Health Maintenance Due Date Last Done Comments Tobacco Counseling 1978 Depression Screening 1990 COVID-19 Vaccine (5 - 2024-2 6 season) 2024 03/20/2022, 07/30/2021, 01/14/2021, Additional history exists Influenza Vaccine 12/29/2024 03/02/2023, , 02/16/2022, Additional history exists Adult BMI Screening 07/31/2025 07/31/2024 Tobacco Screening 07/31/2025 07/31/2024 DTaP,Tdap and Td Vaccines (2 - Td or Tdap) 12/03/2028 12/03/2018 Medical Devices Not on file Insurance [facility] Care Teams Lean Manager Relationship Specialty Start Date End Date Patsy Anderson, CENTRAL STERILE TECHNICIAN-CREDIT PORTFOLIO ADVISOR PCP - General Nurse Practitioner 02/07/22
[2025-02-09 16:08] LABS: Anion Gap 13.0; Blood Urea Nitrogen 15.0 mg/dL (7.0-18.0); Calcium 9.5 mg/dL (8.5-10.1); Carbon Dioxide 29.2 mmol/L (21.0-32.0); Chloride 103 mmol/L (98-107); Estimated GFR (African America >60 (>=60 mL/min/1.73m^2); Estimated GFR (Non-African Ame >60 (>=60 mL/min/1.73m^2); Glucose 120 mg/dL (74-106); Magnesium 1.7 mg/dL (1.8-2.4); Potassium 4.2 mmol/L (3.5-5.1); Sodium 141 mmol/L (136-145); Thyroid Stimulating Hormone 2.168 uIU/mL (0.358-3.740)
== END 2025-02-09 14:41 | disposition home or self-care (01) ==
PROVIDERS: PCP Nurse Practitioner; Visit Provider Nurse Practitioner
DX: R25.2 Cramp and spasm (principal); E03.9 Hypothyroidism, unspecified
CPT/HCPCS: 36415; 80048; 83735; 84439; 84443

== ENCOUNTER 2025-02-17 16:23 | Outpatient (OUT) | payer BC, SELFPAY ==
--- OUTSIDE RECORDS SUMMARY | 2025-02-17 16:28 | XMS_ITS | Clinical Summary ---
Author Organization [facility] Address [address] [place] [address] Care Team Providers Care Coldfusion Name Role Phone Unavailable Primary Care Provider Unavailabl e Allergies No known active allergies Medications MedicationSigDispense QuantityRefillsLast FilledStart DateEnd DateStatus ALPRAZolam (Xanax) 1 mg tablet 01/13/2022ctive ondansetron ODT (Zofran-ODT) 4 mg disintegrating tablet Active glecaprevir-pibrentasvir (Mavyret) 100-40 mg tablet Active famotidine (Pepcid) 20 mg tablet Take 20 mg by mouth if needed in the morning and at bedtime.01/13/2022ctive oxyCODONE (Roxicodone) 10 mg immediate release tablet Take 1 tablet every 4 hours by oral route as needed for 30 days.Active buprenorphine-naloxone (Suboxone) 8-2 mg SL film 01/03/2022ctive omeprazole (PriLOSEC) [address] capsule Take 40 mg by mouth.03/30/2022ctive SUMAtriptan (Imitrex) 100 mg tablet 05/10/2021ctive ProAir HFA 90 mcg/actuation inhaler 05/12/2021ctive azithromycin (Zithromax) 250 mg tablet 11/17/2021ctive amoxicillin-pot clavulanate (Augmentin) 875-125 mg tablet 11/13/2021ctive Active Problems ProblemNoted DateDiagnosed KyjkKcdscdq44/08/2022hronic ehzpegyuudp92/11/2022 Chronic GERD01/11/2022 Immunizations ImmunizationAdministration DatesNext DueHep A, Adult10/14/2018,04/16/2018Hep B, adult05/15/2018,04/16/2018 Social History Tobacco UseTypesPacks/DayYears UsedDateSmoking Tobacco: Never AssessedUT Safety & EnvironmentAnswerDate RecordedFear of Current or Ex-PartnerNot on file 06/21/2023Emotionally AbusedNot on file06/21/2023hysically AbusedNot on file 06/21/2023Sexually AbusedNot on file06/21/2023hysically or Sexually AbusedNot on file06/21/2023Sex and Gender InformationValueDate RecordedSex Assigned at BirthNot on fileLegal QmlIkek7010/26/2021 10:36 PM EDTGender IdentityNot on file Sexual OrientationNot on file Last Filed Vital Signs Vital SignReadingTime TakenCommentsBlood Jooyjcjb981/54005/15/2018 4:16 PM EST Osrvz792505/15/2018 4:16 PM ESTTemperature--Respiratory Rate--Oxygen Saturation-- Inhaled Oxygen Concentration--Celjww479 kg (245 lb)05/15/2018 4:12 PM ESTHeight 193 cm (6' 4 )05/15/2018 4:12 PM ESTBody Mass Index29.8205/15/2018 4:12 PM EST Plan of Treatment Health MaintenanceDue DateLast DoneCommentsCT Byeggfeujtxh86/25/1979Colonoscopy 1978Colorectal Cancer Snjflvpis91/25/1979FIT-DNA1978FIT1978 FOBT1978 9043Opvhpwvsgoqwj03/25/1979Depression Wrszndvox55/25/1991Hepatitis B Vaccines (3 of 3 - 19+ 3-dose series), 04/16/2018HPV Vaccines (3 - 3-dose SCDM series)/07/2019, 04/27/2019Influenza Vaccine (#1)501/03/2021, 01/30/2019Zoster Vaccines (1 of 2)2028 Adult Eaktfge17HIB VaccinesAged OutNo longer eligible based on patient's age to complete this topicIPV VaccinesAged OutNo longer eligible based on patient's age to complete this topicMeningococcal B VaccineAged OutNo longer eligible based on patient's age to complete this topicMeningococcal VaccineAged OutNo longer eligible based on patient's age to complete this topicPneumococcal Vaccine: Pediatrics (0 to 5 Years) and At-Risk Patients (6 to 64 Years)Aged Out No longer eligible based on patient's age to complete this topicRotavirus VaccinesAged OutNo longer eligible based on patient's age to complete this topic Insurance
--- OUTSIDE RECORDS SUMMARY | 2025-02-17 16:29 | XMS_ITS | Clinical Summary ---
Author Organization [facility] Address [address] [place] [address] Care Team Providers Care Audio Visual Collections Coordinator Name Role Phone Patsy Anderson STUDENT AFFAIRS DEAN Unavailable [phone] Lon Baker MD Primary Care Provider [phone] Allergies No known active allergies Medications MedicationSigDispense QuantityRefillsLast FilledStart DateEnd DateStatus Buprenorphine HCl-Naloxone HCl (Suboxone) 8-[address] 2 Film into mouth between cheek and gum Daily4Active ALPRAZolam (Xanax) 1 MG tablet Indications:AnxietyTake 1 tablet (1 mg) by mouth every 8 (eight) hours if needed for anxiety 90 tablet 4Active albuterol HFA 90 mcg/act inhaler Indications:WheezingInhale 2 puffs every 6 (six) hours if needed for wheezing 18 g 5Active omeprazole (PriLOSEC) [address] capsule Indications:Gastroesophageal reflux disease, unspecified whether esophagitis presentTake 1 capsule (40 mg) by mouth in the morning and 1 capsule (40 mg) in the evening. Take before meals. Do not crush or chew. 180 capsule 5Active levothyroxine (Synthroid) 50 MCG tablet Indications:Hypothyroidism (acquired)Take 1 tablet (50 mcg) by mouth in the morning. Take before meals. 30 tablet 5Active SUMAtriptan (Imitrex) 100 MG tablet Indications:Migraine without aura and without status migrainosus, not intractableTake 1 at onset of migraine [place], may repeat in 2 hours if needed. Max dose 2 pills in 24 hours. Do not take more than twice a week 9 tablet 5Active Active Problems ProblemNoted DateDiagnosed DateShingles rash11/13/2024Encounter for adult wellness visit09/17/2024 Assessment & Plan (09/17/2024 5:42 PM EDT): Reviewed Ht/Wt/BMI Recommend eye exam yearly Recommend dental exams twice a year Balance work/leisure activities Exercises is recommended most days of the week (appropriate as chronic conditions allow) Follow up yearly and prn Class 1 obesity due to excess calories without serious comorbidity in adult 09/17/2024 Assessment & Plan (09/17/2024 5:43 PM EDT): Discussed with patient their BMI (actual, verses recommended). We have also discussed lifestyle modifications: attempts to perform physical activity as chronic conditions allow, also to monitor dietary intake: increasing protein/fruits/veggies and lowering carb intake (unless contraindicated). Limit sodas, juices, and sugary drinks. Substance use jydnwxfz14/19/2025dult wellness visit09/15/2024Migraine without aura and without status migrainosus, not qcchtkyiwux45/08/2024 Assessment & Plan (09/17/2024 5:41 PM EDT): Uses ubrelvey for migraines, has been out of a few months Imitrex works, however causes groggy feeling Stressor with life/work/weather Colon cancer yfqhhwlcf26/27/2024 Assessment & Plan (10/25/2023 3:51 PM EDT): Will order cologuard Abnormal PFTs (pulmonary function tests)08/08/2023Hypothyroidism (acquired) 07/03/2023 Assessment & Plan (09/17/2024 5:40 PM EDT): Increase levo dose to 50mcg Check labs in 8 weeks Assessment & Plan (01/28/2024 8:17 PM EDT): Needs labs checked Assessment & Plan (10/25/2023 3:50 PM EDT): Has lost 20 pounds since last visit, feeling good Check thyroid labs Mixed fpxtwnqumtqufn38/05/2024 Assessment & Plan (09/17/2024 5:42 PM EDT): Stopped statin d/t extreme fatigue, resolved after stopping We discussed the trigs, which may be influenced by his thyroid Hold on meds at this time Assessment & Plan (10/25/2023 3:51 PM EDT): Stopped statin d/t extreme fatigue, resolved after stopping Has changed his diet, and he has lost close to 20 pounds Will recheck lipids Lppuen4306/05/2023 Assessment & Plan (09/17/2024 5:40 PM EDT): Zofran ODT prn for nausea with migrain Assessment & Plan (10/25/2023 3:50 PM EDT): Would like prn zofran ODT Former tobacco use06/04/2023Gastroesophageal reflux wsoylyu3406/04/2023 Assessment & Plan (09/17/2024 5:39 PM EDT): [...] weight, changed diet Fu in 3 months Oxznbyej48/05/2024 Assessment & Plan (06/04/2023 8:17 PM EST): Order chest xray, PFT Abdominal rjindzms72/05/2024 Assessment & Plan (06/04/2023 8:18 PM EST): Can trial bentyl PRN Dssktvu4504/06/2022 Assessment & Plan (10/25/2023 3:52 PM EDT): OARRS reviewed Consider possible addition of rexulti?? Pt will research Fu in 3 months Assessment & Plan (06/04/2023 8:18 PM EST): OARRS reviewed Updated med agreement signed Fu in 3 months Chronic svxqmipwofo93/11/2022 Resolved Problems ProblemNoted DateDiagnosed DateResolved DateOpioid abuse, uncomplicated / Assessment & Plan (01/28/2024 8:16 PM EDT): Continue with suboxone and treatment provider BMI 33.0-33.9,adult/ Encounters DateTypeDepartmentCare TwdsXmpgejfqpfe56/12/2025Refill [facility] [address] [place] [address] Patsy Anderson NP Migraine without aura and without status migrainosus, not intractable (Primary Dx)12/08/2024Telephone [facility] [address] [place] [address] Patsy Anderson NP from Last 3 Months Immunizations ImmunizationAdministration DatesNext DueHPV 9-Fjffyb8208/02/2019,04/27/2019Hep A, Adult06,04/16/2018Hep B, adult01,04/16/2018Influenza, injectable, quadrivalent, preservative free03/02/2023,05/11/2020,01/30/2019Tdap 12/03/2018 Family History Medical HistoryRelationNameCommentsMental illnessBrotherMental illnessFather CancerMaternal GrandfatherMental illnessMaternal GrandfatherCancerMaternal GrandmotherRelationNameStatusCommentsBrotherFatherMaternal GrandfatherMaternal Grandmother Social History Tobacco UseTypesPacks/DayYears UsedDateSmoking Tobacco: FormerCigarettesQuit: 2016Smokeless Tobacco: Never Tobacco Cessation:Counseling Given: Not Answered Alcohol UseStandard Drinks/WeekCommentsNever0 (1 standard drink = 0.6 oz pure alcohol)caffine: soda 1 jppzxA8711 Health LiteracyAnswerDate RecordedHow often do you need to have someone help you when you read instructions, pamphlets, or other written material from your doctor or pharmacy?Never04/27/2024Social Connection and Isolation PanelAnswerDate RecordedIn a typical week, how many times do you talk on the phone with family, friends, or neighbors?More than three times a week04/27/2024How often do you get together with friends or relatives?More than three times a week04/27/2024How often do you attend taoist or restorationist services?More than 4 times per year04/27/2024o you belong to any clubs or organizations such as taoist groups, unions, fraternal or athletic dottie ups, or school groups?Yes04/27/2024How often do you attend meetings of the clubs or organizations you belong to?More than 4 times per year04/27/2024re you , , , , never , or living with a partner? Patient vbgdppyy14/29/2024UDIT-CAnswerDate RecordedQ1: How often do you have a drink containing alcohol?Never04/27/2024Q2: How many drinks containing alcohol do you have on a typical day when you are drinking?Patient does not drink 04/27/2024Q3: How often do you have six or more drinks on one occasion?Never 04/27/2024Overall Financial Resource Strain (CARDIA)AnswerDate RecordedHow hard is it for you to pay for the very basics like food, housing, medical care, and heating?Not hard at all04/27/2024HQ-2AnswerDate RecordedPatient Health Questionnaire-2 Fzvnw508Finsevier [facility] of Occupational Health - Occupational Stress QuestionnaireAnswerDate RecordedDo you feel stress - tense, restless, nervous, or anxious, or unable to sleep at night because yourmind is troubled all the time - these days?Only a wwwqph3404/27/2024Exercise Vital Sign AnswerDate RecordedOn average, how many days per week do you engage in moderate to strenuous exercise (like a brisk walk)?7 days04/27/2024On average, how many minutes do you engage in exercise at this level?150+ min04/27/2024Hunger Vital SignAnswerDate RecordedWithin the past 12 months, you worried that your food would run out before you got the money to buymore.Never true04/27/2024Within the past 12 months, the food you bought just didn't last and you didn't have money to get more.Never true04/27/2024RAPARE - TransportationAnswerDate RecordedIn the past 12 months, has lack of transportation kept you from medical appointments or from getting medications?No04/27/2024In the past 12 months, has lack of transportation kept you from meetings, work, or from getting things needed for daily living?No04/27/2024Housing Stability Vital SignAnswerDate RecordedIn the last 12 months, was there a time when you were not able to pay the mortgage or rent on time?No04/27/2024In the past 12 months, how many times have you moved where you were living?t any time in the past 12 months, were you homeless or living in a fci (including now)?No04/27/2024Sex and Gender InformationValueDate RecordedSex Assigned at CzrkwWkui01/03/2024 10:42 AM EDTLegal XbcTams4507/12/2022 6:55 PM EDTGender TbfevgwxIycz31/03/2024 10:42 AM EDTSexual NcncecnwswmMephabeh77/03/2024 10:42 AM EDT Last Filed Vital Signs Vital SignReadingTime TakenCommentsBlood Ynluohey253/6805 4:50 PM EDT Fqtco858209/17/2024 4:50 PM ENUPxkytxfvrqr15.8 ??C (98.2 ??F)09/17/2024 4:50 PM EDTRespiratory Lavg208809/17/2024 4:50 PM EDTOxygen Jpkowchymr99%09/17/2024 4:50 PM EDTInhaled Oxygen Concentration--Rwddpr409 kg (276 lb 3.2 oz)09/17/2024 4:50 PM LVWTfetlr301 cm (6' 4 )10/25/2023 3:01 PM EDTBody Mass Index33.62010/25/2023 3:01 PM EDT Plan of Treatment Health MaintenanceDue DateLast DoneCommentsCT Yvfiplbzpzty47/25/1979Colonoscopy 1978FIT1978FOBT1978 5852Mcbzwmjteosrg62/25/1979Influenza Vaccine (#1), 05/11/2020, 01/30/2019Colorectal Cancer Screening 02/02/2027FIT-DNA71 Procedures Procedure NamePriorityDate/TimeAssociated DiagnosisCommentsLAB COLOGUARD?? COLON CANCER IEYGWAPmhnlnr95/06/2024 1:07 AM EDT Colon cancer screening from Last 3 Months or Most Recently Relevant to Health Maintenance Results * Cologuard?? colon cancer screening (02/03/2024 1:07 AM EDT)ComponentValueRef RangeTest MethodAnalysis TimePerformed AtPathologist SignatureNONINV COLON CA DNA+OCC BLD SCRN STL-YHXQamkqcdqPepyigfc93/10/2024 10:53 AM EDTEXEpicPledge (CLIA #:[id number])Comment: NEGATIVE TEST RESULT. A negative Cologuard result indicates a low likelihood that a colorectal cancer (CRC) or advanced adenoma (adenomatous polyps with more advanced pre-malignant features) ??is present. The chance that a person with a negative Cologuard test has a colorectal cancer is less than 1in 1500 (negative predictive value >99.9%) or has an advanced adenoma is less than 5.3% (negative predictive value 94.7%). These data are based on a prospective cross-sectional study of 10,000individuals at average risk for colorectal cancer who were screened with both Cologuard and colonoscopy. (Dominick Valdez al, N Engl J Med 2014;370(14):5799-8995) The normal value (reference range) for this assay is negative. COLOGUARD RE-SCREENING RECOMMENDATION: Periodic colorectal cancer screening is an important part ofpreventive healthcare for asymptomatic individuals at average risk for colorectal cancer. ??Following a negative Cologuard result, the [employer] and U.S. Multi-Society Task Force screening guidelines recommend a Cologuard re-screening interval of 3 years. References: [place] [employer] Guideline for Colorectal Cancer Screening: https://www.cancer.or g/cancer/cjeug-azhamu-gjgrdu/pupfksvuk-ysdibjwuk-ddjcpep/acs-recommendations.htm jhonatan; Jarad العلي, Agustin LARSEN, Janine TorresK, Colorectal Cancer Screening: Recommendations for Physicians and Patients from the U.S. Multi-Society Task Force on Colorectal Cancer Screening , Am J Gastroenterology 2017; 112:7261-3824. TEST DESCRIPTION: Composite algorithmic analysis of stool DNA-biomarkers with hemoglobin immunoassay. ?? Quantitative values of individual biomarkers are not reportable and are not associated with individual biomarker result reference ranges. Cologuard is intended for colorectal cancer screening ofadults of either sex, 45 years or older, [...] (Dominick Valdez al, N Engl J Med 2014;370(14):5662-9861.) Cologuard may produce a false negative or false positive result (no colorectal cancer or precancerous polyp present at colonoscopy follow up). A negative Cologuard test result does not guarantee the absence of CRC or advanced adenoma (pre-cancer). The current Cologuard screening interval is every 3 years. ([place] [employer] and U.S. Multi-Society Task Force). Cologuard performance data in a 10,000 patient pivotal study using colonoscopy as the reference method can be accessed at the following location: www.iPositioning.Daptiv/results. Additional description of the Cologuard test process, warnings and precautions can be found at www.cologuard.Daptiv. Specimen (Source)Anatomical Location / LateralityCollection Method / Volume Collection TimeReceived TimeStool specimen (specimen)Rectal contents / Unknown 02/03/2024 1:07 AM EDT1 10:45 AM EDT Narrative Authorizing ProviderResult TypeResult StatusLisa Jesusrenan [facility]LE[facility] DIAGNOST[facility] ORDERABLESFinal ResultPerforming OrganizationAddressCity/State/ZIP CodePhone Number [employer] (CLIA #:[id number]) [place] [address], from Last 3 Months or Most Recently Relevant to Health Maintenance Insurance Care Teams Team MemberRelationshipSpecialtyStart DateEnd Date Lon Baker MD [facility] - [facility]23 Patsy Anderson NP Referring PhysicianNurse [facility]11/13/22
--- OUTSIDE RECORDS SUMMARY | 2025-02-17 16:29 | XMS_ITS | Patient Health Record ---
Author Organization [facility] [place] Address [address] [place] [address] Care Team Providers Care Disabilities Caregiver Name Role Phone JOSE WORTHINGTON MD Primary Care Provider [phone] Reason For Referral No Information Medications Medication SIG (Take, Route, Frequency, Duration) Notes Start Date End Date Status Roxicodone 15 mg tablet ActiveLortab 500 mg-10 bnyvrcgi53/01/1900ActiveXanax 1 mgtablet 04/30/18997149UfkuirAowrnlhhdmcynzcw78/01/1900ActiveAmbien 10 uofwnuls84/01/1900 Active Plan Of Treatment No Information Insurance Providers Payer Name Payer Address Payer Phone Subscriber Number Group Number Insured Name Patient Relationship to Insured Coverage Start Date Coverage End Date SELF PAY ON PATIENT DEMOGRAPHICS Leandro Tavareself - patient is the fskfnmv5803/04/2013
--- OUTSIDE RECORDS SUMMARY | 2025-02-17 16:29 | XMS_ITS | Clinical Summary ---
Author Organization [facility] Address [address], [address] [place] [address] Care Team Providers Care Bareback Rider Name Role Phone Unavailable Primary Care Provider Unavailabl e Allergies No known active allergies Medications MedicationSigDispense QuantityRefillsLast FilledStart DateEnd DateStatus levothyroxine (SYNTHROID) 25 MCG tablet Take 2 tablets by mouth every morning (before breakfast)5Active ALPRAZolam (XANAX) 1 MG tablet Take 1 tablet by mouth every 8 hours as needed.4Active omeprazole (PRILOSEC) 40 MG delayed release capsule Take 1 capsule by mouth 2 times daily (before meals)5Active hydrocortisone 2.5 % cream Indications:Dermatitis due to plants, including poison dawn, sumac, and oakApply topically 2 times daily. 15 g 5Active Active Problems No known active problems Social History Tobacco UseTypesPacks/DayYears UsedDateSmoking Tobacco: NeverSmokeless Tobacco: Never Tobacco Cessation:Counseling Given: Not Answered Sex and Gender InformationValueDate RecordedSex Assigned at BirthNot on file Legal YerCaib5510/28/2024 6:32 PM EDTGender IdentityNot on fileSexual Orientation Not on file Last Filed Vital Signs Vital SignReadingTime TakenCommentsBlood Iglqzdbu217/78010/28/2024 6:52 PM EDT Hxxaf572910/28/2024 6:52 PM JDVAdwvapawrzq04.8 ??C (98.2 ??F)10/28/2024 6:52 PM EDTRespiratory Tuez304210/28/2024 6:52 PM EDTOxygen Ghdyresvpd14%10/28/2024 6:52 PM EDTInhaled Oxygen Concentration--Uxezvi870.8 kg (273 lb)10/28/2024 6:52 PM HCLIfhbhj179.4 cm (6' 1 )10/28/2024 6:52 PM EDTBody Mass Index36.02010/28/2024 6:52 PM EDT Plan of Treatment Health MaintenanceDue DateLast DoneCommentsDepression Ihoyue7406/24/1990HIV screen 1993Hepatitis C onanaw0506/24/1996Hepatitis B vaccine (1 of 3 - 19+ 3-dose series)1997Diabetes xqgyqe5806/24/20137476Avbwit80/25/2019HPV vaccine (3 - 3- dose SCDM series), 04/27/20193258Ubeporhfrte03/25/2024FIT/FOBT: Average risk2023Sigmoidoscopy/CT kywivjzlnqpj58/25/2024Flu vaccine (#1) 511/06/2022, 05/11/2020, 01/30/2019COVID-19 Vaccine ( season)5Colorectal Cancer Tqxtjl8502/02/2027Fecal-DNA (Cologuard): Average risk/4DTaP/Tdap/Td vaccine (2 - Td or Tdap)12/03/2028 12/03/2018Hepatitis A vaccineAged Out10/14/2018, 04/16/2018No longer eligible based on patient's age to complete this topicHib vaccineAged OutNo longer eligible based on patient's age to complete this topicMeningococcal (ACWY) vaccineAged OutNo longer eligible based on patient's age to complete this topic Meningococcal B vaccineAged OutNo longer eligible based on patient's age to complete this topicPneumococcal 0-49 years VaccineAged OutNo longer eligible based on patient's age to complete this topicPolio vaccineAged OutNo longer eligible based on patient's age to complete this topic Insurance
--- OUTSIDE RECORDS SUMMARY | 2025-02-17 16:29 | XMS_ITS | Clinical Summary ---
Author Organization [facility] Address [id number] [place] [address] Care Team Providers Care Ice Cream Dispenser Name Role Phone Jesusdeanrenan Patsy Torres APRN-GRAIN ROASTER Primary Care Provider Allergies No known active allergies Medications MedicationSigDispense QuantityRefillsLast FilledStart DateEnd DateStatus buprenorphine-naloxone (SUBOXONE) 8-2 mg film 01/03/2022ctive ALPRAZolam (XANAX) 1 mg tablet 01/13/2022ctive albuterol (PROVENTIL HFA;VENTOLIN HFA) 90 mcg/actuation inhaler Indications:Acute bronchitis with wheezingInhale 2 puffs every 4 (four) hours as needed for wheezing or shortness of breath. 18 g 07/08/2022ctive famotidine (PEPCID) 20 mg tablet Indications:Gastroesophageal reflux disease, unspecified whether esophagitis presentTake 1 tablet (20 mg total) by mouth 2 (two) times a day as needed for heartburn. 60 tablet ctive omeprazole (PriLOSEC) 40 mg capsule Indications:Gastroesophageal reflux disease, unspecified whether esophagitis presentTake 1 capsule (40 mg total) by mouth in the morning and 1 capsule (40 mg total) in the evening. Take before meals. 180 capsule 4Active methylPREDNISolone (MEDROL, SAILAJA,) 4 mg tablet follow package directions 21 tablet 5Active Active Problems ProblemNoted DateDiagnosed DateChronic kmiivuohktj47/11/2022Chronic GERD 01/11/2022 Social History Tobacco UseTypesPacks/DayYears UsedDateSmoking Tobacco: NeverSmokeless Tobacco: CurrentChew Tobacco Cessation:Ready to Q uit: Not Asked; Counseling Given: Not Answered Comments:QUIT 8 YEARS Alcohol UseStandard Drinks/WeekCommentsNot Currently0 (1 standard drink = 0.6 oz pure alcohol)ChildcareAnswerDate YmrzpytxCgmknspwbNhthkki27/12/2019Employment AnswerDate GcjeekroRstdozodevWfblaqb93/12/2019Hunger ScreeningAnswerDate RecordedWithin the past 12 months we worried whether our food would run out before we got money to buy more.Never True07/10/2023Within the past 12 months the food we bought just didn't last and we didn't have money to get more.Never True4Purpose - LifeAnswerDate RecordedPurpose and direction in life Yfgegof8606/10/2020ex and Gender InformationValueDate RecordedSex Assigned at MxknfAceg98/13/2022 9:00 AM EDTLegal ZikJsja8612/03/2014 12:01 PM EDTGender XmuoktasQwte55/13/2022 9:00 AM EDTSexual OnntzwogiwsZipcmfki91/13/2022 9:00 AM EDT Last Filed Vital Signs Vital SignReadingTime TakenCommentsBlood Rpyxfrfg302/6604 2:46 PM EDT Qovgq1234 2:46 PM FJOCcfwsbmiucv75.6 ??C (97.9 ??F)07/31/2024 2:46 PM EDTRespiratory Tqlh617707/31/2024 2:46 PM EDTOxygen Shiheoyyxt775%07/31/2024 2:46 PM EDTInhaled Oxygen Concentration--Spxdem712.8 kg (273 lb)07/31/2024 2:46 PM WKTMitigd640 cm (6' 4 )07/10/2023 11:23 AM EDTBody Mass Index33.23007/10/2023 11:23 AM EDT Plan of Treatment Health MaintenanceDue DateLast DoneCommentsTobacco Fbscwispxb67/25/1979 Depression Uygoaucbm19/25/1991COVID-19 Vaccine ( season)2024 03/20/2022, 07/30/2021, 01/14/2021, Additional history existsInfluenza Vaccine /06/2022, 03/02/2023, 02/16/2022, Additional history existsAdult BMI Qexjlpolw45/06/2024Tobacco Uknmapotg77DTaP,Tdap and Td Vaccines (2 - Td or Tdap) Medical Devices Not on file Insurance Care Teams Team MemberRelationshipSpecialtyStart DateEnd Date Patsy Anderson, PEANUT VENDOR-GRAIN ROASTER PCP - GeneralNurse Tswejmmwjutt43/11/22
--- OUTSIDE RECORDS SUMMARY | 2025-02-17 16:29 | XMS_ITS | Patient Health Record ---
Author Organization [facility] Address [address] [place] [address] Care Team Providers Care Nurse Examiner Name Role Phone XXJose LuisLina Dieter Primary Care Provider Reason For Referral No Information Medications Medication SIG (Take, Route, Frequency, Duration) Notes Start Date End Date Status hydrOXYzine HCl 25 MG Tablet 1 tablet as needed Orally every 8 hrs as needed for anxiety; Duration: 30 day(s) 07/28/2015ActiveOmeprazole 40 MG Capsule Delayed Release1 capsule Orally Once a day; Duration: 30 day(s)07/05/2015ActiveSUMAtriptan Succinate 50 MG Tablet1 tablet as needed one time Orally Once a day; Duration: 30 day(s)07/28/2015Active busPIRone HCl 5 MG Tablet1 tablet Orally Three times a day; Duration: 30 days 09/20/2015ActiveVerapamil HCl 120 MG Tablet1 tablet Orally Three times a day; Duration: 30 day(s)09/20/2015ActivetraZODone HCl 50 MG Tablet1 tablet at bedtime as needed Orally Once a day; Duration: 30 day(s)09/20/2015Active Social History Section Notes: 07/05/15: Quit smoking 8 days ago but chews tobacco. Denies ETOH and IDU. Committed a felony in 2011, and was just released from detention May 2015. 07/05/15: Quit smoking 8 days ago but chews tobacco. Denies ETOH and IDU. Committed a felony in 2011, and was just released from detention May 2015. 07/05/15: Quit smoking 8 days ago but chews tobacco. Denies ETOH and IDU. Committed a felony in 2011, and was just released from detention May 2015. Plan Of Treatment No Information Insurance Providers Payer Name Payer Address Payer Phone Subscriber Number Group Number Insured Name Patient Relationship to Insured Coverage Start Date Coverage End Date [employer]I [address] [place] [address] [id number] MAEGAN MAYNARDelf - patient is the insured Medical (General) History Medical History History ICD Code Anxiety/Depression Hepatitis CSurgical History Surgery Date(Month/Year) left arm fracture repair 1982
[2025-02-17 17:31] LABS: Anion Gap 12.1; Blood Urea Nitrogen 14.0 mg/dL (7.0-18.0); Calcium 8.9 mg/dL (8.5-10.1); Carbon Dioxide 28.0 mmol/L (21.0-32.0); Chloride 102 mmol/L (98-107); Estimated GFR (African America >60 (>=60 mL/min/1.73m^2); Estimated GFR (Non-African Ame >60 (>=60 mL/min/1.73m^2); Glucose 109 mg/dL (74-106); Magnesium 1.8 mg/dL (1.8-2.4); Potassium 4.1 mmol/L (3.5-5.1); Sodium 138 mmol/L (136-145)
== END 2025-02-17 16:24 | disposition home or self-care (01) ==
LOC: LAB 16:25
PROVIDERS: PCP Nurse Practitioner; Visit Provider Nurse Practitioner
DX: R25.2 Cramp and spasm (principal); E03.9 Hypothyroidism, unspecified; R73.9 Hyperglycemia, unspecified
CPT/HCPCS: 36415; 80048; 83036; 83735